=== PATIENT | male | born 1965 | race Caucasian/White ===

== ENCOUNTER 2020-10-15 15:39 | Emergency (ER) | payer OTHER ==
[~2020-10-15 15:39] MED LIST: AMOXICILLIN875 MG PO; AUGMENTIN 875-1 EACH PO; BACTRIM DS TAB1 EACH PO; IBUPROFEN800 MG PO; LEVAQUIN500 MG PO; METRONIDAZOLE500 MG PO; NAPROXEN500 MG PO; NORCO 5-325 TA1 EACH PO; SKELAXIN800 MG PO
== END 2020-10-15 19:27 | disposition home or self-care (01) ==
LOC: FER 15:39
DX: K40.90 Unilateral inguinal hernia, without obstruction or gangrene, not specified as recurrent (principal); F17.210 Nicotine dependence, cigarettes, uncomplicated
CPT/HCPCS: 99283

== ENCOUNTER → 2021-03-21 | Day surgery (SDC) | payer OTHER ==
[~2021-03-21] VITALS: Ht 175.3 cm; Wt 66.2 kg
[~2021-03-21] MED LIST changes: +ACETAMINOPHEN500 M1 PO; +COLACE100 MG PO; +MOTRIN600 MG PO; +OXY-IR 5MG5 MG PO
[2021-03-21 08:35] LABS: BUN/CREAT RATIO (CALC) 13.9 RATIO; CREATININE 1.01 mg/dL (0.67-1.17)
== END | disposition home or self-care (01) ==
LOC: FAS 07:06
PROVIDERS: Anesthesiology
DX: K40.91 Unilateral inguinal hernia, without obstruction or gangrene, recurrent (principal); F31.9 Bipolar disorder, unspecified; I10 Essential (primary) hypertension; E78.00 Pure hypercholesterolemia, unspecified; F17.210 Nicotine dependence, cigarettes, uncomplicated; N50.89 Other specified disorders of the male genital organs
CPT/HCPCS: 36415; 80048; J0690; J1170; J1644; J1885; J2001; J2250; J2405; J2704; J2710; J3010; J7120

== ENCOUNTER → 2021-05-16 | Day surgery (SDC) | payer OTHER ==
[~2021-05-16] VITALS: Ht 175.3 cm; Wt 70.3 kg
== END | disposition home or self-care (01) ==
LOC: FAS 06:15
DX: Z12.11 Encounter for screening for malignant neoplasm of colon (principal); D12.4 Benign neoplasm of descending colon; D12.5 Benign neoplasm of sigmoid colon; K57.30 Diverticulosis of large intestine without perforation or abscess without bleeding; K64.8 Other hemorrhoids; N44.2 Benign cyst of testis; I86.1 Scrotal varices; Z98.890 Other specified postprocedural states
CPT/HCPCS: J2250; J2704; J7120